=== PATIENT | female | born 1960 | race Caucasian/White ===

== ENCOUNTER 2019-05-05 19:46 | Emergency (ER) | payer OTHER ==
--- NOTE | 2019-05-05 20:34 | ED ---
Hypertension - HPI Summary HPI Summary: Patient complains of new onset daily headache 2 weeks rated 8/10, elevated blood pressure 5 days, decreased energy 1 week, increased urinary urge 3 days. Denies prior history of headaches over elevated blood pressure. Patient was started on bystolic 5 mg when necessary 3 days ago. Took first dose 3 days ago, took second dose today. Headache described as new onset, posterior, worse in the a.m., mildly relieved with Tylenol or ibuprofen. Denies fever, cough, sore throat, vision change, AMS, no deficits, CP, SOB, N/V/D, abdominal pain, change in BM. Also complains of increase in stress 2 weeks. Also complains of drinking significantly more black tea over the past 2 weeks. Medical history is none. Nonsmoker. Denies new medications other than Bystolic. 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 - History of Current Complaint Chief Complaint: EDHypertension Stated Complaint: HIGH BP PER PT Time Seen by Provider: 05/05/19 20:30 Hx Obtained From: Patient, Family/Division Leader Onset/Duration: Started Days Ago Timing: Intermittent Aggravating Factor(s): Nothing Alleviating Factor(s): Nothing Associated Signs & Symptoms: Anxiety/Stress, Headaches - Allergies/Home Medications Allergies/Adverse Reactions: Allergies Allergy/AdvReac Type Severity Reaction Status Date / Time No Known Allergies Allergy Verified 05/05/19 20:04 Home Medications: Home Medications Nebivolol TAB (NF) [Bystolic TAB (NF)] 5 mg PO DAILY 05/05/19 [History Confirmed 05/05/19] PMH/Surg Hx/FS Hx/Imm Hx Endocrine/Hematology History: Denies: Hx Anticoagulant Therapy Cardiovascular History: Denies: Hx Pacemaker/ICD History: Denies: Hx Dialysis Sensory History: Denies: Hx Eye Prosthesis Opthamlomology History: Denies: Hx Legally Blind EENT History: Denies: Hx Deafness Neurological History: Denies: Hx Dementia Infectious Disease History: No Infectious Disease History: Denies: Traveled Outside the [place] in Last 30 Days - Family History Known Family History: Positive: Non-Contributory - Social History Alcohol Use: Occasionally Substance Use Type: Reports: None Smoking Status (MU): Never Smoked Tobacco Review of Systems Constitutional: Negative Eyes: Negative ENT: Negative Cardiovascular: Negative Respiratory: Negative Gastrointestinal: Negative Positive: frequency Musculoskeletal: Negative Skin: Negative Positive: Headache Psychological: Normal All Other Systems Reviewed And Are Negative: Yes Physical Exam Triage Information Reviewed: Yes Vital Signs On Initial Exam: Initial Vitals Temp Pulse Resp BP Pulse Ox 98.7 F 68 16 167/127 95 05/05/19 20:00 05/05/19 20:00 05/05/19 20:00 05/05/19 20:00 05/05/19 20:00 Vital Signs Reviewed: Yes Appearance: Positive: Well-Appearing Skin: Positive: Warm Head/Face: Positive: Normal Head/Face Inspection Eyes: Positive: Normal Neck: Positive: Supple Respiratory/Lung Sounds: Positive: Clear to Auscultation Cardiovascular: Positive: Normal Abdomen Description: Positive: Nontender Musculoskeletal: Positive: Normal Neurological: Positive: Normal Psychiatric: Positive: Normal AVPU Assessment: Alert - Man Coma Scale Best Eye Response: 4 - Spontaneous Best Motor Response: 6 - Obeys Commands Best Verbal Response: 5 - Oriented Coma Scale Total: 15 Procedures - Sedation Patient Received Moderate/Deep Sedation with Procedure: No Diagnostics - Vital Signs Vital Signs Temp Pulse Resp BP Pulse Ox 05/05/19 20:00 98.7 F 68 16 167/127 95 - Laboratory Result Diagrams: 05/05/19 20:51 05/05/19 20:51 Lab Statement: Any lab studies that have been ordered have been reviewed, and results considered in the medical decision making process. Hypertension Course/Dx - Course Course Of Treatment: Patient complains of new onset daily headache 2 weeks rated 8/10, elevated blood pressure 5 days, decreased energy 1 week, increased urinary urge 3 days. Denies prior history of headaches over elevated blood pressure. Patient was started on bystolic 5 mg when necessary 3 days ago. Took first dose 3 days ago, took second dose today. Headache described as new onset, posterior, worse in the a.m., mildly relieved with Tylenol or ibuprofen. Denies fever, cough, sore throat, vision change, AMS, no deficits, CP, SOB, N/V/D, abdominal pain, change in BM. Also complains of increase in stress 2 weeks. Also complains of drinking significantly more black tea over the past 2 weeks. Medical history is none. Nonsmoker. Denies new medications other than Bystolic. 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 SBP elevated between 140 and 170. States baseline SBP usually around 110. Labs unremarkable. Possible dehydration per BUN/creatinine ratio of 29. UA negative. CT brain negative. BP resolved to 135/80 without medication. Patient has had increased stress, and has been drinking a lot more black tea with caffeine. Symptoms may be related to stress and/or increased caffeine intake. Advised patient to decrease caffeine, drink more fluids and monitor blood pressure. If blood pressure remains elevated, to follow-up with primary care for possible evaluation of hypertension. - Diagnoses Provider Diagnoses: Headache, Elevated blood pressure reading, Urinary frequency Discharge ED - Sign-Out/Discharge Documenting (check all that apply): Patient Departure - Discharge Plan Condition: Stable Disposition: HOME Patient Education Materials: Acute Headache (ED), Urinary Urgency and Frequency (DC) Referrals: No Primary Care Phys,NOPCP [Primary Care Provider] - Additional Instructions: Alternate ibuprofen 600 mg with Tylenol 650 mg every 3 hours for headache. Drink less caffeine. Follow-up with primary care. Return to the ED for any new or worsening symptoms. - Billing Disposition and Condition Condition: STABLE Disposition: Home - Attestation Statements Provider Attestation: I have seen the patient with the SARBJIT and agree with the plan and documentation below. Lucinda Tony MD
[2019-05-05 21:06] LABS: ABS Eosinophils 0.2 10^3/ul (0-0.6); ABS Lymphocytes 1.9 10^3/ul (1.0-4.8); ABS Monocytes 0.6 10^3/ul (0-0.8); ABS Neutrophils 2.8 10^3/ul (1.5-7.7); Eosinophil % 4.3 %; Hematocrit 40 % (35-47); Hemoglobin 13.2 g/dL (12.0-16.0); Lymphocyte % 34.2 %; Mean Corpuscular HGB Conc 33 g/dL (31-36); Mean Corpuscular Hemoglobin 29 pg (27-31); Mean Corpuscular Volume 86 fL (80-97); Mean Platelet Volume 8.9 fL (7.4-10.4); Nucleated Red Blood Cells % 0.1; Platelet Count 235 10^3/uL (150-450); Red Blood Count 4.62 10^6 /uL (3.70-4.87); Red Cell Distribution Width 14 % (10-15); White Blood Count 5.5 10^3/uL (3.5-10.8)
[2019-05-05 21:24] LABS: ALT 21 U/L (7-52); AST 21 U/L (13-39); Albumin 4.3 g/dL (3.2-5.2); Albumin/Globulin Ratio 1.4 (1-3); Alkaline Phosphatase 83 U/L (34-104); Anion Gap 6 mmol/L (2-11); BUN/Creatinine Ratio 29.4 (8-20); Blood Urea Nitrogen 20 mg/dL (6-24); C Reactive Protein < 1.00 mg/L (<8.01); CO2 Carbon Dioxide 28 mmol/L (22-32); Calcium 9.3 mg/dL (8.6-10.3); Chloride 106 mmol/L (101-111); EGFR African American 106.8 (>60); EGFR Non-African American 88.3 (>60); Globulin 3.1 g/dL (2-4); Glucose 88 mg/dL (70-100); Potassium 3.7 mmol/L (3.5-5.0); Sodium 140 mmol/L (135-145); Total Protein 7.4 g/dL (6.4-8.9)
[2019-05-05 21:39] LABS: Urine Appearance Clear; Urine Bilirubin Negative (Negative); Urine Blood Negative (Negative); Urine Color Colorless; Urine Glucose Negative (Negative); Urine Ketones Negative (Negative); Urine Nitrite Negative (Negative); Urine Protein Negative (Negative); Urine Specific Gravity 1.004 (1.010-1.030); Urine Urobilinogen Negative (Negative)
[2019-05-05 21:48] LABS: TSH (Thyroid Stimulating Horm) 4.78 mcIU/mL (0.34-5.60)
[2019-05-05] MEDS ORDERED: Acetaminophen TAB* 325 MG PO ONE (23:36)
[2019-05-05 23:52] VITALS: BP 153/83
== END 2019-05-05 23:45 | disposition home or self-care (01) ==
LOC: ED 19:46
DX: R51 Headache (principal); F41.9 Anxiety disorder, unspecified; Z79.899 Other long term (current) drug therapy; R03.0 Elevated blood-pressure reading, without diagnosis of hypertension; R35.0 Frequency of micturition
CPT/HCPCS: 36415; 70450; 80053; 81003; 84443; 84484; 85025; 86140; 93005; 99283